=== PATIENT | female | born 1995 | race Hispanic/Latino ===

== ENCOUNTER 2018-04-13 11:35 | Day surgery (SDC) | payer OTHER ==
[2018-04-13 12:44] VITALS: BMI 25.7
--- NOTE | 2018-04-13 13:36 | PDOC.LDHP ---
Addendum entered and electronically signed by Victor Manuel Ny MD 04/13/18 14:25 : Upper level addendum. I agree with history as documented by Dr. Pruitt with the following addendum. Patient experienced spotting following intercourse this morning x1 episode. Denies risk for STD. I performed the sterile speculum exam and no blood was found to be in the vaginal vault or coming form the cervix. The cervix was closed, thick, and posterior. Type and Screen O+ with negative antibody. d/c home with labor precautions. Case discussed with Dr. Ang who was in agreement. Original Note: Labor and Delivery H&P Chief complaint: other (Vaginal spotting) HPI: This is a 22 yo presenting at 30.1 wks to L&D with a cc of vaginal spotting. Pt. states that she had intercourse with her boyfriend this morning and then noticed spotting on toilet paper and on a pad at ~0900. She denies any spotting since then. She denies headaches, dizziness, chest pain, dyspnea, abdominal pain,nausea, vomiting vaginal pain, lower extremity swelling or pain. She denies any contractions. Current gestational age (weeks): 30 (30.1) Due date: 06/22/18 Dating criteria: last menstrual period (Confirmed by ultrasound) Grav: 2 Para: 1 OB History Details: Anterior placenta by US Current complications: none Abnormal US findings: Yes (SGA with concern for IUGR) Current medications: pre-karthik vitamins Previous surgical history: none Social history: none - Physical Exam Vital signs reviewed and normal: yes (Temp 98.3, BP 115/70, HR 69, RR 16) General: NAD Heart: RRR Lungs: nonlabored breathing Abdomen: NTTP Extremeties: no edema - Vaginal Exam Effacement: 0% - OB Labs GBS: positive (HUMBERTO 03/22/18) - Assessment Post-coital bleeding, no contractions - Plan Plan: other (Pt. counseled that post-coital spotting is a normal occurance. Discussed labor triage, return to hospital contractions, heavy bleeding, loss of fluid. Type and screen ordered due to none available in records.) <Alexander Pruitt - Last Filed: 04/13/18 13:47> <Debbie Ang - Last Filed: 04/13/18 15:35> Allergies/Adverse Reactions: Allergies Allergy/AdvReac Type Severity Reaction Status Date / Time No Known Allergies Allergy Verified 06/28/16 10:47 Attending Addendum - Attending Addendum Date/Time: 04/13/18 9194 I personally evaluated the patient and discussed the management with Dr. [] I agree with the History, Examination, Assessment and Plan documented above with any addition or exceptions noted below. 22 yo at 31w1d presenting with single episode of light spotting following intercourse. Placenta is anterior fundal. No continued bleeding. Cervix closed. FHT is reassuring. O+. Reassurance offered that spotting after intercourse in normal. D/C to home with return precautions <Debbie Ang - Last Filed: 04/13/18 15:35>
== END 2018-04-13 14:50 | disposition home or self-care (01) ==
LOC: L&D/OP 11:35
PROVIDERS: ATTEND Student in an Organized Health Care Education/Training Program
DX: O26.853 Spotting complicating pregnancy, third trimester (principal); Z3A.30 30 weeks gestation of pregnancy
CPT/HCPCS: 36415; 86850; 86900; 86901; 99283

== ENCOUNTER 2022-05-11 17:50 | Emergency (ER) | payer OTHER, SELFPAY ==
[2022-05-11 18:18] LABS: #Basophils 0.1 thou/uL (0.0-0.2); #Eosinphils 0.1 thou/uL (0.0-0.7); #Monocytes 0.6 thou/uL (0.11-0.59); #Neutrophils 5.3 thou/uL (1.40-6.50); %Basophils 0.8 % (0.0-1.0); %Eosinophils 1.6 % (0.0-10.0); %Lymphocytes 24.3 % (21.0-51.0); %Monocytes 7.8 % (0.0-10.0); %Neutrophils 65.4 % (42.0-75.0); Hemoglobin 13.6 g/dL (12.0-16.0); Mean Corpuscular HGB CONC 31.6 g/dL (32.0-36.0); Mean Corpuscular Hemoglobin 29.4 pg (27.0-31.0); Mean Platelet Volume 9.8 fL (7.4-10.4); Platelet Count 198 thou/uL (130-400); RBC Distribution Width 13.7 % (11.5-14.5); Red Blood Cell (RBC) Count 4.63 mill/uL (4.20-5.40); White Blood Cell (WBC) Count 8.1 thou/uL (4.8-10.8)
[2022-05-11 18:41] LABS: ALT (SGPT) 14 U/L (8-55); AST (SGOT) 10 U/L (5-34); Albumin 4.2 g/dL (3.5-5.0); Alkaline Phosphatase 67 U/L (40-110); Anion Gap 11 mmol/L (10-20); BUN (Urea Nitrogen) 11 mg/dL (7.0-18.7); Bilirubin, Total 0.4 mg/dL (0.2-1.2); Calc. Creatinine Clearance 0 mL/min (70-130); Calcium 9.1 mg/dL (7.8-10.44); Carbon Dioxide 27 mmol/L (22-29); Chloride 104 mmol/L (98-107); Estimated GFR 86; Globulin 2.7 g/dL (2.4-3.5); Glucose 100 mg/dL (70-105); Potassium 4.1 mmol/L (3.5-5.1); Protein, Total 6.9 g/dL (6.0-8.3); Sodium 138 mmol/L (136-145)
[2022-05-11 21:01] LABS: Bacteria/HPF None Seen HPF (None Seen); Bilirubin Negative (Negative); Blood, Urine 3+ (Negative); Clarity Turbid (Clear); Glucose, Urine (Dipstick) Normal (Negative); Ketone, Urine Negative (Negative); Leukocyte 25 Leu/uL (Negative); Nitrite Negative (Negative); Protein, Urine (Dipstick) 10 mg/dL (Neg-Trace); RBC/HPF Greater than 50 HPF (0-3); Specific Gravity, Urine 1.019 (1.002-1.036); Urobilinogen Normal mg/dL (Less than 2); WBC/HPF 0-3 HPF (0-3); pH, Urine 5.5 (5.0-9.0)
== END 2022-05-11 21:27 | disposition home or self-care (01) ==
LOC: EEVIPCON 17:50 → ERS 17:50
DX: O46.91 Antepartum hemorrhage, unspecified, first trimester (principal); Z3A.01 Less than 8 weeks gestation of pregnancy
CPT/HCPCS: 36415; 76856; 80053; 81003; 81015; 84702; 85025; 86900; 86901